=== PATIENT | female | born 1990 | race Two or more races ===

== ENCOUNTER 2025-04-22 15:13 | Emergency (ER) | payer OTHER ==
[~2025-04-22] VITALS: Ht 170.2 cm; Wt 104.3 kg
[2025-04-22 17:31] LABS: PLATELET COUNT (AUTO) 239 K/uL (150-450); RED BLOOD CELL COUNT(AUTO) 4.57 MIL/uL (4.0-5.2); RED CELL DISTRIBUTION WIDTH 15.3 % (11.5-15.0); WHITE BLOOD COUNT (AUTO) 10.7 K/uL (4.3-11.0)
[2025-04-22 17:43] LABS: CALCIUM, SERUM 8.8 mg/dL (8.5-10.1); CREATININE 0.8 mg/dL (0.6-1.3); SODIUM SERUM 140.0 mmol/L (136-145); UREA NITROGEN, BLOOD 19.0 mg/dL (7-18)
[2025-04-22 17:50] LABS: ASPARTATE AMINOTRANSFERASE 70.0 U/L (15-37); TOTAL PROTEIN, SERUM 7.9 g/dL (6.4-8.2)
[2025-04-22] MEDS ORDERED: FAMOTIDINE/PF INJ 20 MG/2 ML VIAL IV ONE (17:52)
[2025-04-22] MEDS: FAMOTIDINE/PF INJ 20 MG/2 ML VIAL IV ONE (18:14)
[2025-04-22 18:49] LABS: APPEARANCE,URINE SLIGHTLY CLOUDY (CLEAR); BLOOD, URINE NEGATIVE Ery/uL (NEGATIVE); LEUKOCYTE ESTERASE ,URINE 2+ (NEGATIVE); NITRITE, URINE NEGATIVE (NEGATIVE); UGLUCOSE NEGATIVE (NEGATIVE)
[2025-04-22 18:53] LABS: ADD URINE CULTURE YES; SQUAMOUS EPITHELIAL CELL,UR Moderate /HPF (None Seen)
[2025-04-22 18:58] LABS: PREGNANCY TEST URINE QUAL NEGATIVE (NEGATIVE)
[2025-04-22] MEDS ORDERED: KETOROLAC TROMETHAMINE INJ 30 MG/ML VIAL ONE (19:06)
[2025-04-22] MEDS: KETOROLAC TROMETHAMINE INJ 30 MG/ML VIAL IV ONE (19:12)
[2025-04-22] MEDS ORDERED: CEFTRIAXONE 1GM BAG (ER ONLY) 50 ML IV ONE (19:38)
[2025-04-22] MEDS: CEFTRIAXONE 1 G in IV D5W 50 ML IV ONE (19:48)
[2025-04-22] MEDS ORDERED: AMOX-430 PO (20:36)
[2025-04-22] MEDS ORDERED: IBUP-1490 PO (20:36)
[2025-04-22 21:16] VITALS: BP 131/76; TEMP 98.1; O2SAT 99
== END 2025-04-22 21:16 | disposition home or self-care (01) ==
LOC: ER 15:17
DX: K80.50 Calculus of bile duct without cholangitis or cholecystitis without obstruction (principal); N39.0 Urinary tract infection, site not specified; E66.01 Morbid (severe) obesity due to excess calories; K21.9 Gastro-esophageal reflux disease without esophagitis
CPT/HCPCS: 99285; 96365; 76705; 96375; 85025; 80048; 87086; 83690; 80076; 84703; 81001; 36415; J1885; J1308; J0696 ×2; J7060